=== PATIENT | male | born 1955 | race American Indian/Alaskan Native ===

== ENCOUNTER 2021-06-12 11:07 | Emergency (ER) | payer OTHER ==
[2021-06-12 11:18] VITALS: BP 127/67
[2021-06-12] MEDS ORDERED: CLINDAMYCIN 150 MG CAPSULE PO STA (12:09)
--- NOTE | 2021-06-12 12:11 | ED Physician Documentation ---
PD HPI SKIN - Stated complaint Stated Complaint: R SIDE FACE BUMP - Chief complaint Chief Complaint: Wound - History obtained from History obtained from: Patient - Additional information Additional information: 65-year-old gentleman with history of brainstem tumor causing some cranial neuropathies had a cataract fixed a few days ago. That day he noted facial swelling on the right cheek which has been increasing ever since. There is no pain but he is chronically insensate on that side of the face. No fevers. Review of Systems Constitutional: denies: Fever, Chills Nose: denies: Rhinorrhea / runny nose, Congestion Throat: reports: Reviewed and negative Cardiac: reports: Reviewed and negative PD PAST MEDICAL HISTORY - Past Medical History Past Medical History: Yes Cardiovascular: Other Other Past Medical History: Kidney issue. 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 - Past Surgical History Past Surgical History: Yes - Present Medications Home Medications: Ambulatory Orders Medication Instructions Recorded Confirmed clindamycin HCL [Cleocin HCl] 300 mg PO QID #28 cap 06/12/21 - Allergies Allergies/Adverse Reactions: Allergies Allergy/AdvReac Type Severity Reaction Status Date / Time No Known Drug Allergies Allergy Verified 06/12/21 11:19 - Social History Does the pt smoke?: No Smoking Status: Never smoker Does the pt drink ETOH?: Yes ETOH Use: Beer Does the pt have substance abuse?: Yes Substance Use and Type: Marijuana - Immunizations Immunizations are current?: Yes PD ED PE NORMAL - Vitals Vital signs reviewed: Yes - General General: Alert and oriented X 3, No acute distress - HEENT HEENT: Other (There is a linear scratch that looks infected that runs from just below the medial lower eyelid and runs inferolaterally down the right cheek with just a touch of purulence. No actual fluctuant area and it was debrided and I could not find a fluid pocket. 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 Return if you develop pain, more swelling, fevers, or other concerns. Followup with your PCP Sunday or Sunday for recheck. We are performing a wound culture, the results should be done in 48-72 hours. If antibiotic change is necessary we will call you. Return if worse in the meantime, especially if you develop increased pain, fevers, cannot keep down the medication. Otherwise follow-up with your physician in approximately 2-3 days.
== END 2021-06-12 12:16 | disposition home or self-care (01) ==
LOC: ED 11:07
DX: H00.033 Abscess of eyelid right eye, unspecified eyelid (principal)
CPT/HCPCS: 87070; 87205; 99282; 99283; A9270

== ENCOUNTER 2022-01-05 12:01 | Emergency (ER) | payer OTHER ==
[2022-01-05 12:11] VITALS: BP 105/67
[2022-01-05] MEDS ORDERED: CLINDAMYCIN 150 MG CAPSULE PO STA (12:39)
--- NOTE | 2022-01-05 12:40 | ED Physician Documentation ---
PD HPI WOUND RECHECK - Stated complaint Stated Complaint: NOSE WOUND CHECK - Chief complaint Chief Complaint: Wound - Histroy obtained from History obtained from: Patient, Family - Additional information Additional information: 66-year-old gentleman with history of brain tumor undergoing work-up, because of that he has right-sided deficits and his does most of the talking for him, but he is able to talk. For the last few days he has had swelling over the nose. No pain, no fever. Review of Systems Constitutional: denies: Fever, Chills Nose: denies: Rhinorrhea / runny nose, Congestion Cardiac: denies: Chest pain / pressure, Palpitations Respiratory: denies: Dyspnea, Cough PD PAST MEDICAL HISTORY - Past Medical History Cardiovascular: Other Neuro: Other Other Past Medical History: brain tumor - Past Surgical History Past Surgical History: Yes - Present Medications Home Medications: Ambulatory Orders Medication Instructions Recorded Confirmed clindamycin HCL [Cleocin HCl] 300 mg PO QID #28 cap 06/12/21 clindamycin HCL [Cleocin HCl] 300 mg PO QID #28 cap 01/05/22 - Allergies Allergies/Adverse Reactions: Allergies Allergy/AdvReac Type Severity Reaction Status Date / Time No Known Drug Allergies Allergy Verified 01/05/22 12:10 - Social History Does the pt smoke?: No Smoking Status: Never smoker Does the pt drink ETOH?: Yes Does the pt have substance abuse?: Yes - Immunizations Immunizations are current?: Yes PD ED PE NORMAL - Vitals Vital signs reviewed: Yes - General General: No acute distress, Well developed/nourished, Other (His right eyes bandaged shut, she says that because he cannot close his eye due to the brain tumor and they want him keeping a closed.) - HEENT HEENT: Other (He has sebaceous cysts inferior to the bridge of the nose exteriorly with infection and purulent drainage. This was debrided bit during exam with Q-tips. A culture was taken.) - Psych Psych: Normal mood, Normal affect Results - Vitals Vitals: Vital Signs - 24 hr 01/05/22 12:08 Temperature 36.4 C L Heart Rate 91 Respiratory 16 Rate Blood Pressure 105/67 O2 Saturation 100 Oxygen O2 Source Room air - Labs Labs: Microbiology 01/05/22 11:32 Wound Culture - Preliminary Abscess Departure - Departure Disposition: 01 Home, Self Care Clinical Impression: Cellulitis of nasal tip Condition: Good Record reviewed to determine appropriate education?: Yes Instructions: ED Cellulitis Facial Prescriptions: clindamycin HCL [Cleocin HCl] 300 mg PO QID #28 cap Comments: We are performing a wound culture, the results should be done in 48-72 hours. If antibiotic change is necessary we will call you. Return if worse in the meantime, especially if you develop increased pain, fevers, cannot keep down the medication. Otherwise follow-up with your physician in approximately 2-3 days. Discharge Date/Time: 01/05/22 13:02
== END 2022-01-05 13:02 | disposition home or self-care (01) ==
LOC: ED 12:01
DX: J34.0 Abscess, furuncle and carbuncle of nose (principal)
CPT/HCPCS: 87070; 87077; 87205; 99283; A9270